=== PATIENT | male | born 1940 | race Caucasian/White ===

== ENCOUNTER 2018-01-12 20:20 | Emergency (ER) | payer MEDICARE ==
[2018-01-12 20:28] VITALS: BP 122/61; PULSE 72; RESP 20; TEMP 97.8
[2018-01-12] MEDS ORDERED: LIDOCAINE 1% INJ 10MG/ML (20 ML MDV) SQ ONE (21:00)
[2018-01-12] MEDS ORDERED: DIPH,PERTUS(ACELL)TETVAC-LF 0.5 ML VIAL IM ONE (21:00)
--- NOTE | 2018-01-12 21:04 | ED ---
Wound/Laceration HPI - General Chief Complaint: Wound/Laceration Stated Complaint: left hand lac Time Seen by Provider: 01/12/18 20:48 Source: patient, family Mode of arrival: ambulatory Limitations: no limitations - History of Present Illness Initial Comments: This a 77-year-old male past medical history of DVT and congestive heart failure presents today for chief complaint of laceration to the left thenar eminence 2 hours. Patient states that he was rolling up a on a when a spring sprung loose cutting his hand at the base of the right thumb. Patient denied decreased range motion, numbness, tingling, paresthesias, loss sensation. Patient is on warfarin and states that they were not able to get the bleeding is stopped the past 2 hours. Patient tetanus up-to-date. Remainder ROS negative. Upon arrival VS stable and during history taking pt bleeding had stopped. Pt last INR 3 weeks ago, WNL per pt. - Related Data Allergies Allergy/AdvReac Type Severity Reaction Status Date / Time No Known Allergies Allergy Verified 01/12/18 20:28 Review of Systems ROS Statement: Those systems with pertinent positive or pertinent negative responses have been documented in the HPI. ROS Other: All systems not noted in ROS Statement are negative. Constitutional: Denies: fever, chills Respiratory: Denies: cough, dyspnea, wheezes, hemoptysis, stridor Cardiovascular: Denies: chest pain, palpitations Endocrine: Denies: fatigue Gastrointestinal: Denies: abdominal pain, nausea, vomiting, diarrhea, constipation Genitourinary: Denies: urgency, dysuria Musculoskeletal: Denies: joint swelling, arthralgia Skin: Reports: as per HPI Neurological: Denies: numbness, paresthesias, confusion, abnormal gait Past Medical History Past Medical History: Heart Failure, Deep Vein Thrombosis (DVT) Additional Past Medical History / Comment(s): neuropathy History of Any Multi-Drug Resistant Organisms: None Reported Past Surgical History: Pacemaker Past Psychological History: No Psychological Hx Reported Smoking Status: Former smoker Past Alcohol Use History: Occasional Past Drug Use History: None Reported General Exam - General Exam Comments Initial Comments: General: The patient is awake and alert, in no distress, and does not appear acutely ill. Eye: Pupils are equal, , extra-ocular movements are intact. No nystagmus. There is normal conjunctiva bilaterally. No signs of icterus. Cardiovascular: There is a regular rate and rhythm. No murmur, rub or gallop is appreciated. Respiratory: Lungs are clear to auscultation, respirations are non-labored, breath sounds are equal. No wheezes, stridor, rales, or rhonchi. Musculoskeletal: Full ROM at the MCP, PIP and DIP joints of all 5 digits of the hands b/l, no tenderness. Strength 5/5 at the MCP, PIP and DIP joints of. Sensation intact in digits and hands equally b/l. Capillary refill <2seconds. Radial pulses equal bilaterally 2+. Neurological: A&O x 3. CN II-XII intact, There are no obvious motor or sensory deficits. Coordination appears grossly intact. Speech is normal. Skin: Skin is warm and dry and no rashes. 2cm crescent shaped flap laceration to the left thenar eminence. No exposure of underlying structures. No evidence FB. No active bleeding upon examination. Psychiatric: Cooperative, appropriate mood & affect, normal judgment. Limitations: no limitations Course Vital Signs 01/12/18 20:21 Temperature 97.8 F Pulse Rate 72 Respiratory 20 Rate Blood Pressure 122/61 O2 Sat by Pulse 95 Oximetry Procedures - Laceration Laceration #1 Consent Obtained: verbal consent Time Out Performed: Yes Indication: laceration Site: hand (left thenar eminence) Size (cm): 2 Description: flap, irregular Depth: simple, single layer Anesthetic Used: lidocaine 1% Anesthesia Technique: local infiltration Amount (mls): 6 Pre-repair: wound explored, irrigated extensively, deep structures intact Type of Sutures: nylon Size of Sutures: 5-0 Number of Sutures: 4 Technique: simple, interrupted Patient Tolerated Procedure: well, no complications Medical Decision Making - Medical Decision Making 77 yo with cc of laceration left hand. TDaP updated. Laceration edges approximated with 4, 5.0 suture. After extensive irrigation and exploration. Pt tolerated well. Given dept of laceration there is no concern for tendonous injury at this time. Case discussed with Dr. Harrison at this time we feel pt is stable for discharge with f/u in 7-10 days for suture removal. Patient was educated proper suture care and on signs and symptoms of infection, instructed to return to emergency department if the symptoms arise, patient verbalized understanding. Patient denied questions at this time. d/c in stable condition. Disposition Clinical Impression: Laceration of left hand without complication, excluding fingers Disposition: HOME SELF-CARE Condition: Good Instructions: Care For Your Stitches (ED), Laceration (ED) Additional Instructions: Please use over the counter medication for pain, as discussed. Please follow- up with family doctor in the next 2 days of symptoms have not improved. Please return to the emergency department in 7-10 days for suture removal. Please return to emergency room if the symptoms increase or worsen or for any other concerns such as signs of infection as discussed. Is patient prescribed a controlled substance at d/c from ED?: No Referrals: Nonstaff,Physician [Primary Care Provider] - 1-2 days Time of Disposition: 22:00
== END 2018-01-12 22:14 | disposition home or self-care (01) ==
LOC: EC 20:20
DX: S61.412A Laceration without foreign body of left hand, initial encounter (principal); I50.9 Heart failure, unspecified; Z23 Encounter for immunization; Z79.01 Long term (current) use of anticoagulants; Z86.718 Personal history of other venous thrombosis and embolism; Z87.891 Personal history of nicotine dependence; Z95.0 Presence of cardiac pacemaker; W26.8XXA Contact with other sharp object(s), not elsewhere classified, initial encounter; Y92.69 Other specified industrial and construction area as the place of occurrence of the external cause; Y99.0 Civilian activity done for income or pay
CPT/HCPCS: 99282; 12001; 90471; 90715; J2001